=== PATIENT | male | born 1965 | race African-American/Black ===

== ENCOUNTER 2021-01-06 17:00 | Outpatient (CLI) | payer MEDICARE, SELFPAY ==
--- NOTE | ~2021-01-06 | MR_ITS ---
EXAMINATION: MR lumbar spine wo con EXAM DATE: 01/06/2021 18:07 INDICATION: Low back pain radiating down left leg. TECHNIQUE: Multi-sequential, multiplanar MR images of the lumbar spine were obtained without contrast . Sagittal T1, T2, T2 fat saturation images. Axial T2 weighted images. Comparison is made to prior examination from 09/29/2018. FINDINGS: There is a liver mass measuring 12 cm in craniocaudal dimension, seen on the needle polisher images. Probably some increase in size compared to MR abdomen 12/08/2017, correlate with that report. Postoperative changes posterior to L4 and L5, probably bilateral L4 laminotomies and L5 laminectomies . The vertebral bodies are aligned in the AP dimension. There is mild loss of the L5-S1 disc height. The vertebral body and disc heights are otherwise well maintained. The conus medullaris terminates at the L1 level and has normal signal intensity and morphology. Lower lumbar spinal canal at the L5 level has large amount of anterior epidural lipomatosis which is essentially collapsing the thecal sac, unchanged compared to prior study. Level by level evaluation: T12-L1: Disc does not extend beyond the endplate margin. Facet arthropathy: Mild to moderate right, mild left. Neural foraminal stenosis: Moderate right. Central canal stenosis: No stenosis. L1-L2: Disc does not extend beyond the endplate margin. Facet arthropathy: Mild. Neural foraminal stenosis: No stenosis. Central canal stenosis: No stenosis. L2-L3: Disc does not extend beyond the endplate margin. Facet arthropathy: Mild. Neural foraminal stenosis: No stenosis. Central canal stenosis: No stenosis. L3-L4: There is a minimal diffuse disc bulge. Facet arthropathy: Mild. Neural foraminal stenosis: No stenosis. Central canal stenosis: No stenosis. L4-L5: There is a mild diffuse disc bulge. Facet arthropathy: Moderate left, mild to moderate right. Neural foraminal stenosis: Mild to moderate bilateral. Central canal stenosis: Posterior decompression. L5-S1: There is a mild to moderate diffuse disc bulge. Facet arthropathy: Mild to moderate. Neural foraminal stenosis: Moderate to severe left, moderate right. Central canal stenosis: Posterior decompression. Compared to prior study, there may be mild progression in the L5-S1 neural foraminal stenosis. IMPRESSION: 1. L5-S1 neural foramen most narrowed. 2. Liver mass measuring 12 cm craniocaudal dimension. Reviewed, dictated and finalized at location B.
== END 2021-01-06 17:01 ==
PROVIDERS: Visit Provider Nurse Practitioner Family
DX: M54.16 Radiculopathy, lumbar region (principal)
CPT/HCPCS: 72148

== ENCOUNTER → 2021-02-27 01:13 | Outpatient (CLI) | payer MEDICARE, SELFPAY ==
[2021-02-28 00:33] LABS: SARS-CoV-2 RNA PCR Positive
== END ==
PROVIDERS: PCP Family Medicine; Visit Provider Family Medicine
DX: U07.1 COVID-19 (principal)
CPT/HCPCS: C9803; U0003; U0005

== ENCOUNTER 2021-05-05 00:07 | Day surgery (SDC) | payer MEDICARE, SELFPAY ==
[2021-04-21 13:19] VITALS: BMI 33.2
[2021-05-05 06:24] VITALS: BP 147/103; PULSE 70; RESP 18; TEMP 36.4; O2SAT 100
[2021-05-05] MEDS: LACTATED RINGERS 1,000 ML 150 ML IV CONT (06:39)
[2021-05-05 07:16] VITALS: BP 137/87; PULSE 64
--- NOTE | 2021-05-05 07:29 | WPDANESEPPF ---
Anes - Initial Pre Proc Eval Procedure: Operation Date: 05/05/21 07:30 Proposed Procedures p Screening Colonoscopy - Cristofer Reaves MD Date/Time: 05/05/21 07:29 Surgeon: Cristofer Reaves MD Pre Op Diagnosis: neoplasm screening Z12.11 Patient Data Age: 55 Gender: M Height: 1.82 m Weight: 109.8 kg Last Vital Signs Temp 97.5 F L 05/05/21 06:24 Pulse 64 05/05/21 07:16 Resp 18 05/05/21 06:24 BP 137/87 05/05/21 07:16 Pulse Ox 100 05/05/21 06:24 Allergies Allergy/AdvReac Type Severity Reaction Status Date / Time No Known Allergies Allergy Verified 05/05/21 06:22 Home Medications Medication Instructions Recorded Confirmed Type albuterol sulfate 2 puff INHALATION QID PRN #8 gm 08/17/19 04/21/21 Rx amlodipine 10 mg PO DAILY 08/17/19 04/21/21 History lisinopril-hydrochlorothiazide 1 tablet PO DAILY 08/17/19 04/21/21 History metoprolol succinate 100 mg PO DAILY 08/17/19 04/21/21 History ibuprofen 800 mg PO QID PRN 04/21/21 04/21/21 History Patient hx anesthesia problems: none Family hx anesthesia problems: none Results Review: All pre-operative results and documents have been reviewed as part of the pre-operative evaluation. [facility] Past Medical History Medical History (Updated 01/20/21 @ 11:06 by Janet Hui) Anxiety Carpal tunnel syndrome Chronic bronchitis Degenerative disc disease GERD (gastroesophageal reflux disease) Hypertension Iron deficiency Kidney stones Surgical History Surgical History S/P laminectomy Family History Family History Father Diabetes mellitus Mother Diabetes mellitus Cancer Unknown Heart disease Hypertension Other Family history of malignant neoplasm Social History Social History Smoking status: Never smoker Alcohol intake: current Substance use: current Substance use type: marijuana Other substance usage details: monthly Living arrangements: with family Gender identity (if verbalized by the patient): Male Spiritual care concerns: No Anes - Eval Final PreProcedure Day of Procedure 05/05/21 07:29 Patient weight: obese Heart: regular rate and rhythm Lungs: clear to auscultation Airway: Mallampati scale class II Neurological: alert and oriented Last oral intake: >/= 8 hours ASA classification: III Emergent: no Anesthetic plan: proceed Anesthesia type and monitoring: general GIVS and standard monitoring Results Review: All pre-operative results and documents have been reviewed as part of the pre-operative evaluation. Informed Consent: The patient's anesthetic plan and its attendant risks and benefits were discussed with the patient/family/POA. Questions were solicited and answers provided to the satisfaction of the patient/family/POA.
--- NOTE | 2021-05-05 07:33 | PM.HPGS ---
History of Present Illness History of Present Illness Consent: Risks, benefits, and alternatives have been discussed and questions answered. Patient agrees to proceed with procedure. Chief complaint: neoplasm screening Z12.11 Narrative: Kp Schwartz is a 55 year old male here for first screening colonoscopy Review of Systems Constitutional: Constitutional: Denies headache(s) and Denies weakness Eyes: Eyes: Denies blurry vision ENT: Reports Normal hearing present, Denies headache(s) and Denies neck pain Cardiovascular: Cardiovascular: Denies chest pain and Denies dyspnea Respiratory: Respiratory: Denies dyspnea Gastrointestinal: Gastrointestinal: Reports no additional gastrointestinal complaints Genitourinary: Genitourinary: Denies dysuria Musculoskeletal: Musculoskeletal: Denies neck pain Integumentary/Breasts: Skin/Breast: Denies dry skin Neurologic: Reports Normal hearing present, Denies headache(s) and Denies weakness Psychiatric: Psychiatric: Denies anxiety Endocrine: Endocrine: Denies change in body appearance Hematologic/Lymphatic: Hematologic/Lymphatic: Denies easy bleeding Allergic/Immunologic: Allergic/Immunologic: Denies urticaria PMFSH Past Medical History Medical History (Updated 05/05/21 @ 07:34 by Cristofer Reaves MD) Anxiety Carpal tunnel syndrome Chronic bronchitis Colon cancer screening Degenerative disc disease GERD (gastroesophageal reflux disease) Hypertension Iron deficiency Kidney stones Surgical History Surgical History S/P laminectomy Family History Family History Father Diabetes mellitus Mother Diabetes mellitus Cancer Unknown Heart disease Hypertension Other Family history of malignant neoplasm Social History Social History Smoking status: Never smoker Alcohol intake: current Substance use: current Substance use type: marijuana Other substance usage details: monthly Living arrangements: with family Gender identity (if verbalized by the patient): Male Spiritual care concerns: No Meds Home Medications and Allergies Home Medications Medication Instructions Recorded Confirmed Type albuterol sulfate 2 puff INHALATION QID PRN #8 gm 08/17/19 04/21/21 Rx amlodipine 10 mg PO DAILY 08/17/19 04/21/21 History lisinopril-hydrochlorothiazide 1 tablet PO DAILY 08/17/19 04/21/21 History metoprolol succinate 100 mg PO DAILY 08/17/19 04/21/21 History ibuprofen 800 mg PO QID PRN 04/21/21 04/21/21 History Allergies Allergy/AdvReac Type Severity Reaction Status Date / Time No Known Allergies Allergy Verified 05/05/21 06:22 Vital Signs Vital Signs - 24 hr 05/05/21 06:24 05/05/21 07:16 Temperature 97.5 F L Pulse Rate 70 64 Respiratory Rate 18 Blood Pressure 147/103 H 137/87 Pulse Oximetry 100 Exam Const: General: comfortable and no acute distress HENMT: General nose exam: Normal nares present Eyes: General: appearance normal, both eyes and all related structures Neck: Neck: no JVD Resp: Auscultation: clear to auscultation bilaterally Cardio: Rate: regular rate Rhythm: regular rhythm GI: Inspection: non-distended GI Palp: Yes Soft to palpation Skin: General skin exam: normal color Neuro: General: gait normal Speech: normal speech Extrem: General: normal to inspection Psych: Mental Status: mental status grossly normal Assessment and Plan Assessment and plan (1) Colon cancer screening: Code(s): Z12.11 - Encounter for screening for malignant neoplasm of colon Status: Acute Assessment and Plan: colonoscopy
[2021-05-05 08:06] VITALS: BP 148/106; PULSE 76; RESP 23; O2SAT 99
[2021-05-05 08:16] VITALS: BP 132/89; PULSE 70; RESP 21; O2SAT 98
[2021-05-05 08:26] VITALS: BP 127/94; PULSE 71; RESP 19; O2SAT 100
[2021-05-05 08:36] VITALS: BP 116/80; PULSE 67; RESP 20; O2SAT 99
== END 2021-05-05 08:48 | disposition home or self-care (01) ==
PROVIDERS: PCP Family Medicine; Visit Provider Internal Medicine Gastroenterology
PROC: 0DJD8ZZ Inspection of Lower Intestinal Tract, Via Natural or Artificial Opening Endoscopic (ICD-10-PCS; CPT 45378; principal; 2021-05-05 07:30)
DX: Z12.11 Encounter for screening for malignant neoplasm of colon (principal); K57.30 Diverticulosis of large intestine without perforation or abscess without bleeding; K63.5 Polyp of colon; K64.8 Other hemorrhoids; I10 Essential (primary) hypertension; K21.9 Gastro-esophageal reflux disease without esophagitis; F41.9 Anxiety disorder, unspecified; J42 Unspecified chronic bronchitis; F12.90 Cannabis use, unspecified, uncomplicated; E66.9 Obesity, unspecified; Z68.33 Body mass index [BMI] 33.0-33.9, adult; Z79.51 Long term (current) use of inhaled steroids
CPT/HCPCS: 45385; 88305; J2001; J2704; J7120

== ENCOUNTER 2021-08-14 08:54 | Outpatient (CLI) | payer MEDICARE, SELFPAY ==
--- NOTE | ~2021-08-14 | CT_ITS ---
EXAMINATION: CT thoracic lumbar wo con EXAM DATE: 08/14/2021 09:22 INDICATION: Mid and low back pain. TECHNIQUE: Spiral CT thoracolumbar spine was performed without contrast. Axial, coronal and sagittal images of the thoracic spine were reviewed. Axial, coronal and sagittal images of the lumbar spine we re reviewed. The dose-length product (DLP) for this examination was 2041.42 mGy-cm. The exposure was tailored according to patient size (auto mA exposure control), and iterative reconstruction (ASIR) w as used as additional dose reduction technique. Correlation is made to lumbar MRI examination 01/07/20. FINDINGS: THORACIC SPINE: The vertebral bodies are aligned in the AP dimension. There are no acute fractures id entified. There are moderate-sized lower thoracic endplate osteophytes along the right anterolateral aspects of these endplates. Mild to moderate diffuse thoracic facet arthropathy with moderate right n eural foraminal stenosis at T2-3. No evidence of neural foraminal stenosis at the other thoracic leve ls. No evidence of significant central canal stenosis, the discs appear to be confined to their pavan ns. No endplate erosive change. Paraspinal soft tissue is unremarkable. LUMBAR SPINE: Partially fused right sacroiliac joint. Surgical change including L4 laminotomies, L5 l aminectomies. There is no evidence of acute lumbar fracture. There is no disc space widening or tra umatic vertebral body subluxation suspected. Punctate left nephrolithiasis. Mild diffuse lumbar disc disease. Mild lumbar dextroscoliosis. T12-L1: Disc does not extend beyond the endplate margin. Facet arthropathy: Mild to moderate right, mild left. Neural foraminal stenosis: Moderate right. Central canal stenosis: No stenosis. L1-L2: Disc does not extend beyond the endplate margin. Facet arthropathy: Mild. Neural foraminal stenosis: No stenosis. Central canal stenosis: No stenosis. L2-L3: Disc does not extend beyond the endplate margin. Facet arthropathy: Mild. Neural foraminal stenosis: No stenosis. Central canal stenosis: No stenosis. L3-L4: There is a minimal diffuse disc bulge. Facet arthropathy: Mild. Neural foraminal stenosis: No stenosis. Central canal stenosis: No stenosis. L4-L5: There is a mild diffuse disc bulge. Facet arthropathy: Moderate left, mild to moderate right. Neural foraminal stenosis: Mild to moderate bilateral. Central canal stenosis: Posterior decompression. L5-S1: There is a mild to moderate diffuse disc bulge. Facet arthropathy: Mild to moderate. Neural foraminal stenosis: Moderate to severe left, moderate right. Central canal stenosis: Posterior decompression. No appreciable interval change correlating to prior MR lumbar spine. IMPRESSION: 1. Thoracic lumbar spondylosis as above. Reviewed, dictated and finalized at location B. LIFE ECOLOGIST
--- NOTE | ~2021-08-14 | CT_ITS ---
EXAMINATION: CT cervical spine wo [facility] EXAM DATE: 08/14/2021 09:22 INDICATION: Cervical radiculopathy, neck pain. TECHNIQUE: Spiral CT of the cervical spine was performed without contrast. Axial images were reviewe d. Coronal and sagittal reformatted images cervical spine were also reviewed. The dose-length produc t (DLP) for this examination was 522.14 mGy-cm. The exposure was tailored according to patient size (auto mA exposure control), and iterative reconstruction (ASIR) was used as additional dose reduction technique. There is no prior study for comparison. FINDINGS: There are large anteriorly based endplate osteophytes. Moderate to severe disc disease at C3-4, moderate at the other cervical levels. There are no acute fractures identified. The odontoid pr ocess is intact. The lateral masses of C1 line up with C2. The vertebral bodies are aligned in the A P dimension. Paraspinal soft tissue is unremarkable. Level by level evaluation: C2-C3: Disc does not extend beyond the endplate margin. Uncovertebral joint arthropathy: Mild. Facet joint arthropathy: Mild. Neural foraminal stenosis: No stenosis. Central canal stenosis: No stenosis. C3-C4: There is mild disc osteophyte complex. Uncovertebral joint arthropathy: Moderate to severe left, moderate right. Facet joint arthropathy: Mild to moderate bilateral. Neural foraminal stenosis: Severe left, moderate to severe right. Central canal stenosis: Mild. C4-C5: There is mild to moderate disc osteophyte complex. Uncovertebral joint arthropathy: Severe left, moderate to severe right. Facet joint arthropathy: Mild to moderate bilateral. Neural foraminal stenosis: Moderate to severe left, mild to moderate right. Central canal stenosis: Mild to moderate . Central canal measures 6 mm in mid sagittal AP diameter . C5-C6: There is a mild diffuse disc bulge. Uncovertebral joint arthropathy: Mild to moderate right, mild left. Facet joint arthropathy: Mild bilateral. Neural foraminal stenosis: No stenosis. Central canal stenosis: No stenosis. C6-C7: There is a mild diffuse disc bulge. Uncovertebral joint arthropathy: Mild to moderate left, mild right. Facet joint arthropathy: Mild bilateral. Neural foraminal stenosis: No stenosis. Central canal stenosis: No stenosis. C7-T1: There is mild disc osteophyte complex. Uncovertebral joint arthropathy: Moderate to severe bilateral. Facet joint arthropathy: Mild to moderate bilateral. Neural foraminal stenosis: Severe left, moderate to severe right. Central canal stenosis: Mild. IMPRESSION: 1. Advanced cervical spondylosis as detailed above. 2. No acute findings. Reviewed, dictated and finalized at location B. BURSEMENT AUDITOR
== END 2021-08-14 08:55 | disposition home or self-care (01) ==
PROVIDERS: PCP Family Medicine
DX: M47.894 Other spondylosis, thoracic region (principal); M47.892 Other spondylosis, cervical region
CPT/HCPCS: 72125; 72128; 72131

== ENCOUNTER 2021-11-16 10:08 | Emergency (ER) | payer MEDICARE, SELFPAY ==
--- NOTE | 2021-11-16 10:14 | ED.DENTAL ---
HPI - Dental/Oral General Chief complaint: Dental/Oral Stated complaint: Tooth Pain Time Seen by Provider: 11/16/21 10:22 Source: patient, RN notes reviewed and old records reviewed Mode of arrival: ambulatory Limitations: no limitations History of Present Illness HPI Narrative: 56-year-old male presents to the [facility] with right lower dental pain. Patient states he has an appointment next week with his dentist. Requesting antibiotics. States he spit into a bone on Easter and had some discomfort, last Tuesday, 5 days ago pain and swelling started. Reports a swollen lymph node to the right side. Denies fevers. No facial swelling noted. Patient has a history of hypertension and states he took his medication today. MD Complaint: tooth pain Related Data Home Medications Medication Instructions Recorded Confirmed amlodipine 10 mg PO DAILY 08/17/19 11/16/21 lisinopril-hydrochlorothiazide 1 tablet PO DAILY 08/17/19 11/16/21 metoprolol succinate 100 mg PO DAILY 08/17/19 11/16/21 ibuprofen 800 mg PO QID PRN 04/21/21 11/16/21 hydrocodone-acetaminophen 1 tablet PO DIRECTED 11/16/21 11/16/21 Allergies Allergy/AdvReac Type Severity Reaction Status Date / Time No Known Allergies Allergy Verified 11/16/21 10:29 Review of Systems Review of Systems: All systems reviewed & are unremarkable except as noted in HPI and below Constitutional: Constitutional: Reports no additional constitutional complaints, Denies chills and Denies fever(s) Eyes: Eyes: Reports no additional eye complaints ENT: Reports as per HPI Comments: Dental pain right lower Cardiovascular: Cardiovascular: Reports no additional cardiovascular complaints, Denies chest pain and Denies dyspnea Respiratory: Respiratory: Reports no additional respiratory complaints, Denies cough and Denies dyspnea Musculoskeletal: Musculoskeletal: Reports no additional musculoskeletal complaints Integumentary/Breasts: Skin/Breast: Reports system reviewed and no additional complaints, except as docu Neurologic: Reports system reviewed and no additional complaints, except as documented Psychiatric: Psychiatric: Reports no additional psychiatric complaints Allergic/Immunologic: Allergic/Immunologic: Reports no additional allergic/immunologic complaints PMF Past Medical History Medical History (Updated 11/16/21 @ 10:28 by Sherri Welsh APRN) Anxiety Carpal tunnel syndrome Chronic bronchitis Colon cancer screening Degenerative disc disease GERD (gastroesophageal reflux disease) Hypertension Iron deficiency Kidney stones Surgical History Surgical History S/P laminectomy Family History Family History Father Diabetes mellitus Mother Diabetes mellitus Cancer Unknown Heart disease Hypertension Other Family history of malignant neoplasm Social History Social History Smoking status: Never smoker Alcohol intake: current Substance use: current Substance use type: marijuana Other substance usage details: monthly Gender identity (if verbalized by the patient): Male Spiritual care concerns: No Comments At the time of my signature, I reviewed and agree with the nursing past medical, surgical, social, and family history. There is no relevant family history pertinent to the patient complaint. Exam Const: General: healthy appearing, no acute distress and alert Nutritional Appearance: well nourished Orientation/consciousness: patient oriented x3 Limitations: no limitations HENMT: Head: normal to inspection Ears: external ears normal, TM's normal bilaterally and EAC's normal General nose exam: Normal external nose present and Normal nasal mucous membranes and turbinates present Face and sinus: normal facial exam and face symmetric Mouth: Yes Normal oral and palatal mucosa pr
[2021-11-16 10:20] VITALS: BP 160/103; PULSE 87; RESP 18; TEMP 36.1; O2SAT 99
== END 2021-11-16 10:32 | disposition home or self-care (01) ==
PROVIDERS: Emergency Provider Nurse Practitioner; PCP Family Medicine
DX: K04.7 Periapical abscess without sinus (principal); K21.9 Gastro-esophageal reflux disease without esophagitis; I10 Essential (primary) hypertension; F12.90 Cannabis use, unspecified, uncomplicated
CPT/HCPCS: 99213; G0463

== ENCOUNTER 2022-02-25 10:47 | Outpatient (CLI) | payer MEDICARE, MEDICAID, SELFPAY ==
--- NOTE | ~2022-02-25 | CT_ITS ---
EXAMINATION: CT cervical spine wo con DATE: 02/25/2022 11:16 INDICATION: Neck pain. TECHNIQUE: Computed tomography (CT) of the cervical spine was performed without intravenous contrast. Automated exposure control and iterative reconstruction technique were employed. The dose-length pro duct was 491.47 mGy-cm. COMPARISON: CT cervical spine 08/14/2021 FINDINGS: There is mild emphysema. There is 4 degrees dextrocurvature of cervical spine. There is mil d kyphosis of cervical spine. Vertebral body heights are normal. There are bulky anterior osteophytes at all levels. There is severely decreased disc height at C3-C4 and mildly decreased disc height at C4-C5, C5-C6, and C7-T1. The following disc levels are specifically discussed: C2-C3: There is no uncovertebral joint osteoarthritis. There is mild right facet joint osteoarthritis . There is no neural foraminal stenosis. There is no central canal stenosis. C3-C4: There is severe bilateral uncovertebral joint osteoarthritis. There is mild bilateral facet hossein int osteoarthritis. There is mild right and moderate left neural foraminal stenosis. There is mild ce ntral canal stenosis. C4-C5: There is moderate and severe left uncovertebral joint osteoarthritis. There is mild bilateral facet joint osteoarthritis. There is mild right and moderate left neural foraminal stenosis. There is moderate central canal stenosis. C5-C6: There is ankylosis of right uncovertebral joint with mild hypertrophy. There is mild bilateral facet joint osteoarthritis. There is no neural foraminal stenosis. There is no central canal stenosi s. C6-C7: There is mild bilateral uncovertebral joint osteoarthritis. There is mild bilateral facet join t osteoarthritis. There is no neural foraminal stenosis. There is mild central canal stenosis. C7-T1: There is severe bilateral uncovertebral joint osteoarthritis. There is moderate right and vijaya re left facet joint osteoarthritis. There is moderate bilateral neural foraminal stenosis. There is m ild central canal stenosis. IMPRESSION: 1. Severe cervical spondylosis, stable from 08/14/2021. Reviewed, dictated and finalized at location A.
--- NOTE | ~2022-02-25 | CT_ITS ---
EXAMINATION: CT lumbar spine wo con DATE: 02/25/2022 11:16 INDICATION: Low back pain. TECHNIQUE: Computed tomography (CT) of the lumbar spine was performed without intravenous contrast. A utomated exposure control and iterative reconstruction technique were employed. The dose-length produ ct was 1230.85 mGy-cm. COMPARISON: Lumbar spine MRI 01/06/2021 FINDINGS: There is 6 degrees dextrocurvature of lumbar spine. Vertebral body heights and intervertebr al disc heights are normal. There are changes of L5 laminectomy. The following disc levels are specif ically discussed: L1-L2: The disc does not extend beyond the endplate margin. There is mild bilateral facet joint osteo arthritis. There is no neural foraminal stenosis. There is no central canal stenosis. L2-L3: The disc does not extend beyond the endplate margin. There is mild bilateral facet joint osteo arthritis. There is no neural foraminal stenosis. There is no central canal stenosis. L3-L4: The disc does not extend beyond the endplate margin. There is mild bilateral facet joint osteo arthritis. There is no neural foraminal stenosis. There is no central canal stenosis. L4-L5: The disc is bulging. There is severe bilateral facet joint osteoarthritis. There is mild bilat eral neural foraminal stenosis. There is mild central canal stenosis with posterior decompression. L5-S1: The disc is bulging. There is severe bilateral facet joint osteoarthritis. There is mild bilat eral neural foraminal stenosis. There is mild central canal stenosis. IMPRESSION: 1. Mild lumbar spondylosis, stable from 01/06/2021. Reviewed, dictated and finalized at location A.
== END 2022-02-25 10:48 | disposition home or self-care (01) ==
PROVIDERS: PCP Family Medicine; Visit Provider Nurse Practitioner Adult Health
DX: M47.816 Spondylosis without myelopathy or radiculopathy, lumbar region (principal); M47.892 Other spondylosis, cervical region; M47.896 Other spondylosis, lumbar region
CPT/HCPCS: 72125; 72131

== ENCOUNTER 2022-04-27 12:49 | Outpatient (CLI) | payer MEDICARE, MEDICAID, SELFPAY ==
--- NOTE | ~2022-04-27 | MR_ITS ---
EXAMINATION: MR cervical spine wo con DATE: 04/27/2022 14:54 INDICATION: Cervical radiculopathy TECHNIQUE: Magnetic resonance imaging (MRI) of the cervical spine was performed without intravenous c ontrast. Sequences included sagittal T2-weighted FSE, sagittal T2-weighted FS FSE, sagittal T1-weight ed FSE, axial MERGE and axial T2-weighted FSE. COMPARISON: CT dated 02/25/2022 FINDINGS: Straightening of the normal cervical lordosis. No spondylolisthesis or facet subluxation. Vertebral body heights are normal. Bone marrow signal intensity is normal. Moderate to severe disc height loss at C3-C4 and mild disc height loss at C4-C5, C5-C6 and C6-C7 as well as a few levels in the upper th oracic spine. Prominent anterior osteophytes throughout the cervical spine, solidly bridging at C4-C5 along with some ossification along the posterior longitudinal ligament at C3-C5 consistent with diff use idiopathic skeletal hyperostosis (DISH). The osteophytes exert mass effect upon the right postero lateral wall of the pharynx and cervical esophagus. There is increased signal intensity but with norm al pattern at the level of C3-C4 and C4-C5. The following disc levels are specifically discussed: C2-C3: The disc does not extend beyond the endplate margin. There is no uncovertebral joint osteoarth ritis. There is mild right facet joint osteoarthritis. There is no neural foraminal stenosis. There i s no central canal stenosis. C3-C4: Posterior disc osteophyte complex. There is severe bilateral uncovertebral joint osteoarthriti s. There is mild bilateral facet joint osteoarthritis. There is left and mild to moderate right neura l foraminal stenosis. There is mild to moderate central canal stenosis with indentation of the ventra l surface of cord more prominently on the left. C4-C5: Posterior disc osteophyte complex. There is moderate right and severe left uncovertebral joint osteoarthritis. There is mild bilateral facet joint osteoarthritis. There is mild right and moderate left neural foraminal stenosis. There is moderate central canal stenosis with indentation of the osman tral surface of the cord which is thinned AP and widened left to right. C5-C6: The disc does not extend beyond the endplate margin but with central annular fissure. There is mild left and moderate right uncovertebral joint osteoarthritis with solid ankle is grossly right un covertebral joint. There is mild bilateral facet joint osteoarthritis. There is no neural foraminal s tenosis. There is no central canal stenosis. C6-C7: Mild left paracentral disc protrusion. There is mild bilateral uncovertebral joint osteoarthri tis. There is mild bilateral facet joint osteoarthritis. There is no neural foraminal stenosis. There is minimal central canal stenosis. C7-T1: Disc is bulging. There is severe bilateral uncovertebral joint osteoarthritis. There is mild r ight and moderate left facet joint osteoarthritis. There is moderate bilateral neural foraminal steno sis. There is mild central canal stenosis. IMPRESSION: 1. Moderate to severe cervical spondylosis with possible for disc osteophyte complexes resulting in m ild to moderate central canal stenosis with mild increased cord signal at C3-C4 and C4-C5. Reviewed, dictated and finalized at location A. IMPRESSION: 1. Moderate to severe cervical spondylosis with possible for disc osteophyte co mplexes resulting in mild to moderate central canal stenosis with mild increase d cord signal at C3-C4 and C4-C5.
== END 2022-04-27 12:50 | disposition home or self-care (01) ==
PROVIDERS: PCP Family Medicine; Visit Provider Neurological Surgery
DX: M47.22 Other spondylosis with radiculopathy, cervical region (principal)
CPT/HCPCS: 72141

== ENCOUNTER 2024-04-12 15:32 | Emergency (ER) | payer MEDICARE, SELFPAY ==
--- NOTE | 2024-04-12 15:36 | ECG_ITS ---
Test Date: 2024-04-12 15:41:05 Measurements Intervals [place] Rate: 62 P: 53 WY: 185 QRS: 38 QRSD: 93 T: 99 QT: 403 QTc: 412 Interpretive Statements SINUS RHYTHM LEFT ATRIAL ENLARGEMENT INCOMPLETE RIGHT BUNDLE BRANCH BLOCK LEFT VENTRICULAR HYPERTROPHY WITH ST-T CHANGE BASELINE ARTIFACT- I, II, AVR, AVF, V6 BORDERLINE ECG No previous ECG available for comparison Electronically Signed On 04-12-2024 15:51:32 CDT by Osei Julien D.O.
[2024-04-12 15:43] VITALS: BP 140/116; PULSE 73; RESP 19; TEMP 36.4; O2SAT 99
[2024-04-12 18:27] VITALS: BP 153/97; PULSE 63; PULSE 64; RESP 18; O2SAT 100
[2024-04-12 19:23] LABS: Basophils Absolute Auto 0.1 K/mm3 (0.0-0.1); Basophils Percent Auto 0.8 % (0.2-1.2); Eosinophils Absolute Auto 0.1 K/mm3 (0-0.3); Eosinophils Percent Auto 1.1 % (0-4.4); Hematocrit 40.5 % (42.0-52.0); Hemoglobin 12.5 g/dL (14.0-18.0); Immature Granulocyte Absolute 0.03 K/mm3 (0.00-0.031); Immature Granulocyte Percent A 0.4 % (0-0.5); Lymphocytes Absolute Auto 3.45 K/mm3 (0.9-3.2); Lymphocytes Percent Auto 46.6 % (18.3-44.2); Mean Corpuscular HGB Conc 30.9 g/dl (32-36); Mean Corpuscular Hemoglobin 22.1 pg (26-34); Mean Corpuscular Volume 71.6 fl (80-100); Mean Platelet Volume 12.1 fl (7.4-10.4); Monocytes Absolute Auto 0.5 K/mm3 (0.1-0.6); Monocytes Percent Auto 6.1 % (2.6-8.5); Neutrophils Absolute Auto 3.3 K/mm3 (1.3-6.7); Platelet Count Result 176 k/mm3 (150-375); Red Blood Count 5.66 M/mm3 (4.6-6.20); Red Cell Distribution Width 16.8 % (11.5-14.5); White Blood Count 7.4 K/mm3 (4.5-10.0)
--- NOTE | 2024-04-12 19:24 | ED.ARRPALP ---
HPI - Arrhythmia/Palpitations General Chief Complaint: Arrhythmia/Palpitations Stated Complaint: palpitations Time Seen by Provider: 04/12/24 18:52 History of Present Illness HPI narrative: 58-year-old male presents to the emergency department for evaluation for intermittent heart palpitations with associated anxiety. Patient denies any prior history of coronary disease. Patient states that he has had increased life stresses as of recently. Patient states on Tuesday he did have an emotional discussion with his ex- that got him upset and patient did have heart palpitations with this. Related Data Home Medications Medication Instructions Recorded Confirmed amlodipine 10 mg tablet 10 mg PO DAILY 08/17/19 11/16/21 lisinopril 20 1 tablet PO DAILY 08/17/19 11/16/21 mg-hydrochlorothiazide 12.5 mg tablet metoprolol succinate 100 mg 100 mg PO DAILY 08/17/19 11/16/21 tablet,extended release 24 hr ibuprofen 800 mg tablet 800 mg PO QID PRN Pain 04/21/21 11/16/21 hydrocodone 10 mg-acetaminophen 1 tablet PO DIRECTED 11/16/21 11/16/21 325 mg tablet Allergies Allergy/AdvReac Type Severity Reaction Status Date / Time No Known Allergies Allergy Verified 11/16/21 10:29 Review of Systems Review of Systems: All systems reviewed & are unremarkable except as noted in HPI and below PMFSH Past Medical History Medical History (Updated 04/13/24 @ 00:00 by Cortez Winter) Anxiety Carpal tunnel syndrome Chronic bronchitis Colon cancer screening Degenerative disc disease GERD (gastroesophageal reflux disease) Hypertension Iron deficiency Kidney stones Surgical History Surgical History S/P laminectomy Family History Family History Father Diabetes mellitus Mother Diabetes mellitus Cancer Unknown Heart disease Hypertension Other Family history of malignant neoplasm Social History Social History Smoking status: Never smoker Alcohol intake: current Substance use: current Substance use type: marijuana Other substance usage details: monthly Living arrangements: with family Occupation/Education: unemployed Gender identity (if verbalized by the patient): Male Spiritual care concerns: No Exam Narrative: APPEARANCE: Well appearing, no pain, no distress, well-nourished. HEAD: normocephalic, atraumatic. EYES: PERRLA/EOMI, conjunctivae clear. NOSE: Normal no drainage EARS:TMS clear with good light reflex. THROAT: Pharynx clear, no exudate. NECK: Supple. No adenopathy, no masses. RESPIRATORY: Airway patent, respirations nonlabored. Clear to auscultation bilaterally, no rales, rhonchi, wheezing. CARDIOVASCULAR: Regular rate and rhythm without murmurs rubs or gallops. ABDOMINAL: Soft, nontender, nondistended, normal bowel sounds MUSCULOSKELETAL: Moves all extremities. Strength/ROM intact, No edema, No calf tenderness. NEURO: Alert. Cranial nerves II through XII intact. Good gait. Good coordination SKIN: Warm, dry. Normal Color Course Course Emergency Course: APPEARANCE: Well appearing, no pain, no distress, well-nourished. HEAD: normocephalic, atraumatic. EYES: PERRLA/EOMI, conjunctivae clear. NOSE: Normal no drainage EARS:TMS clear with good light reflex. THROAT: Pharynx clear, no exudate. NECK: Supple. No adenopathy, no masses. RESPIRATORY: Airway patent, respirations nonlabored. Clear to auscultation bilaterally, no rales, rhonchi, wheezing. CARDIOVASCULAR: Regular rate and rhythm without murmurs rubs or gallops. ABDOMINAL: Soft, nontender, nondistended, normal bowel sounds MUSCULOSKELETAL: Moves all extremities. Strength/ROM intact, No edema, No calf tenderness. NEURO: Alert. Cranial nerves II through XII intact. Grossly intact SKIN: Warm, dry. Normal Color Vital Signs Vital signs: Vital Signs Temp
[2024-04-12 19:27] LABS: Add Urine Microscopic? YES; Appearance Urine Clear (Clear); Bilirubin Urine Negative (Negative); Blood Urine Negative (Negative); Color Urine Dark Yellow (Yellow); Glucose Urine UA Negative (Negative); Ketones Urine Trace mg/dL (Negative); Leukocyte Esterase Ur Negative LEU/UL (Negative); Nitrate Urine Negative (Negative); Protein Urine Negative (Negative); Specific Grav Ur 1.023 (1.001-1.035)
[2024-04-12 19:32] LABS: Alanine Aminotransferase 28 U/L (6-50); Albumin Level 4.4 g/dL (3.5-5.1); Alkaline Phosphatase 49 U/L (38-126); Anion Gap 9 mmol/L (4-12); Aspartate Amino Transferase 28 U/L (17-59); Bilirubin,Total 1.3 mg/dL (0.2-1.3); Blood Urea Nitrogen 12 mg/dL (9-20); Calcium 8.9 mg/dL (8.4-10.2); Carbon Dioxide 31 mmol/L (22-30); Chloride 98 mmol/L (98-107); Estimated Glomerular Filt Rate > 60; Glucose 90 mg/dL (65-110); Potassium 3.4 mmol/L (3.4-5.0); Sodium 138 mmol/L (137-145)
[2024-04-12 19:38] LABS: Partial Thromboplastin Time 28.9 Seconds (22.3-36.8)
[2024-04-12 19:43] VITALS: BP 143/88; PULSE 60; RESP 15; O2SAT 98
[2024-04-12 19:43] LABS: Troponin I < 0.012 ng/mL (0.000-0.034)
[2024-04-12 19:46] LABS: INR 1.1; Large Platelets Present; Ovalocytes 1+; Platelet Estimate Adequate (Adequate); Prothrombin Time 14.5 Seconds (11.1-14.7); Schistocytes None Seen
[2024-04-12] MEDS: LORazepam INJ (*CRX) 2 MG/ML VIAL 0.5 MG IV PUSH (19:46)
[2024-04-12 19:57] LABS: D Dimer 0.32 ug/mL (<0.48)
--- NOTE | 2024-04-12 22:18 | ECG_ITS ---
Test Date: 2024-04-12 22:32:28 Measurements Intervals [place] Rate: 56 P: 41 WY: 191 QRS: 12 QRSD: 97 T: 111 QT: 431 QTc: 416 Interpretive Statements SINUS BRADYCARDIA POSSIBLE LEFT ATRIAL ENLARGEMENT LEFT VENTRICULAR HYPERTROPHY AND ST-T CHANGE BORDERLINE ECG Compared to ECG 04/12/2024 15:41:05 HEART RATE HAS DECREASED Electronically Signed On 04-13-2024 06:48:47 CDT by Osei Julien D.O.
[2024-04-12 23:00] LABS: Troponin I < 0.012 ng/mL (0.000-0.034)
[2024-04-12 23:21] VITALS: BP 145/76; PULSE 71; RESP 15; TEMP 36.8; O2SAT 99
== END 2024-04-12 23:21 | disposition home or self-care (01) ==
PROVIDERS: Physician Assistant; Emergency Provider Emergency Medicine; PCP Family Medicine
DX: R00.2 Palpitations (principal); F41.9 Anxiety disorder, unspecified; I10 Essential (primary) hypertension; E61.1 Iron deficiency; K21.9 Gastro-esophageal reflux disease without esophagitis; Z87.442 Personal history of urinary calculi; Z79.899 Other long term (current) drug therapy; R00.1 Bradycardia, unspecified; R94.31 Abnormal electrocardiogram [ECG] [EKG]; I51.7 Cardiomegaly
CPT/HCPCS: 36415; 80053; 81001; 83735; 84443; 84484; 85025; 85380; 85610; 85730; 93005; 96374; 99284; J2060